=== PATIENT | female | born 1995 | race African-American/Black ===

== ENCOUNTER 2020-11-04 17:14 | Emergency (ER) | payer BC, MEDICAID ==
[~2020-11-04] VITALS: Ht 167.6 cm; Wt 68.0 kg
[2020-11-04] MEDS ORDERED: BACITRACIN ZINC OINT UDPKT TOP ONE (18:15)
[2020-11-04] MEDS ORDERED: TETRACAINE 0.5% OPHTH DROPS 4ML LEFTEYE ONE (18:15)
[2020-11-04] MEDS ORDERED: TETANUS, DIPHTHERIA, PERTUSSIS VAC/PF 0.5ML (>7YR OLD) IM ONE (18:15)
[2020-11-04] MEDS ORDERED: HYDROCODONE/ACETAMINOPHEN 5/325MG TABLET PO ONE (18:15)
[2020-11-04] MEDS ORDERED: FLUORESCEIN SODIUM 1MG/STRIP LEFTEYE ONE (18:15)
[2020-11-04 18:42] VITALS: BP 136/70
== END 2020-11-04 19:11 | disposition left against medical advice (07) ==
LOC: ER 17:14
DX: S00.83XA Contusion of other part of head, initial encounter (principal); H11.32 Conjunctival hemorrhage, left eye; M79.671 Pain in right foot; R06.02 Shortness of breath; Y04.0XXA Assault by unarmed brawl or fight, initial encounter; Y93.89 Activity, other specified; Y92.89 Other specified places as the place of occurrence of the external cause; Y99.8 Other external cause status
CPT/HCPCS: 81025; 90471; 90715; 99284

== ENCOUNTER 2021-07-23 01:27 | Inpatient (IN) | payer BC, MEDICAID ==
[~2021-07-23] VITALS: Ht 172.7 cm; Wt 86.2 kg
[2021-07-23] MEDS ORDERED: NALOXONE HCL 0.4 MG/ML 1ML VIAL IM PRN (02:45)
[2021-07-23] MEDS ORDERED: METHYLERGONOVINE MALEATE 0.2 MG/ML IM PRN (02:45)
[2021-07-23] MEDS ORDERED: BUTORPHANOL TARTRATE 2 MG/ML VIAL IV PRN (02:45)
[2021-07-23] MEDS ORDERED: CARBOPROST TROMETHAMINE 250 MCG/ML AMPUL IM PRN (02:45)
[2021-07-23] MEDS ORDERED: MISOPROSTOL 200MCG TABLET VG NR (03:00)
[2021-07-23] MEDS ORDERED: LIDOCAINE HCL 1% 20ML VIAL (Pyxis) INJ INFIL SCH (03:00)
[2021-07-23] MEDS ORDERED: DEXT 5%/LR + PITOCIN 20UNITS/L 1,000 ML IV SCH (03:00)
[2021-07-23] MEDS ORDERED: PENICILLIN G POTASSIUM 5 MMU in DEXT 5% WATER 100 ML IV NR (03:00)
[2021-07-23] MEDS ORDERED: PREN-182 PO (03:19)
[2021-07-23] MEDS: LACTATED RINGERS 1,000 ML IV SCH ×3 (03:21→16:43)
[2021-07-23 03:47] LABS: BASOPHILS % 0.3 % (0.0-2.0); EOSINOPHILS % 0.8 % (0.0-5.0); HEMATOCRIT. 35.5 % (36.0-48.0); HEMOGLOBIN. 11.7 g/dL (12.0-16.0); LYMPHOCYTES % 26.9 % (20.0-50.0); MEAN CORPUSCULAR HEMOGLOBIN 28.8 pg (28.0-32.0); MEAN CORPUSCULAR VOLUME 87.6 fL (81.0-99.0); MEAN PLATELET VOLUME 8.8 fl (7.4-10.4); MONOCYTES % 8.3 % (2.0-8.0); NEUTROPHILS % 63.7 % (40.0-76.0); PLATELET 279 x1000/uL (130-400); RED BLOOD CELL COUNT 4.06 mill/uL (4.2-5.4); RED CELL DISTRIBUTION WIDTH 13.3 % (11.6-14.6)
[2021-07-23 03:50] LABS: CLARITY URINE CLEAR (CLEAR); COLOR URINE YELLOW (YELLOW); KETONES URINE NEGATIVE (NEGATIVE); LEUKOCYTE ESTERASE URINE 1+ (NEGATIVE); NITRITE URINE NEGATIVE (NEGATIVE); OCCULT BLOOD URINE NEGATIVE (NEGATIVE); PROTEIN URINE NEGATIVE (NEGATIVE); SPECIFIC GRAVITY URINE 1.012 (1.005-1.030); UROBILINOGEN URINE 0.2 E.U./dL (0.2-1.0)
[2021-07-23 04:00] LABS: *AMPHETAMINES SCREEN URINE NEGATIVE (NEGATIVE); *BARBITURATES SCREEN URINE NEGATIVE (NEGATIVE); *BENZODIAZEPINES SCREEN URINE NEGATIVE (NEGATIVE)
[2021-07-23 04:02] LABS: *COCAINE SCREEN URINE NEGATIVE (NEGATIVE); CANNABINOID URINE SCREEN NEGATIVE (NEGATIVE); METHADONE URINE SCREEN NEGATIVE (NEGATIVE); OPIATES URINE SCREEN NEGATIVE (NEGATIVE); PHENCYCLIDINE URINE SCREEN NEGATIVE (NEGATIVE)
[2021-07-23 04:18] LABS: INR 0.9; PARTIAL THROMBOPLASTIN TIME 30.5 sec (23.4-31.0); PROTHROMBIN TIME 10.1 sec (9.6-11.0)
[2021-07-23 04:23] LABS: HEPATITIS B SURFACE ANTIGEN NEGATIVE
[2021-07-23] MEDS: PENICILLIN G POTASSIUM 2.5 MMU in DEXTROSE 5% WATER 50 ML IV SCH ×4 (08:01→20:25)
[2021-07-23] MEDS: MAGNESIUM 20 G PREMIX (L & D) 500 ML IV SCH ×2 (08:48→16:54)
[2021-07-23] MEDS: BETAMETHASONE ACET/BETAMET 30 MG/5 ML VIAL IM SCH (08:49)
[2021-07-23] MEDS ORDERED: AZITHROMYCIN 500MG in DEXTROSE 5% WATER 250ML IV SCH (10:00)
[2021-07-23] MEDS ORDERED: AZITHROMYCIN 500MG/250ML 250 ML IV SCH (10:00)
[2021-07-24] MEDS: PENICILLIN G POTASSIUM 2.5 MMU in DEXTROSE 5% WATER 50 ML IV SCH ×3 (00:04→08:27)
[2021-07-24] MEDS: LACTATED RINGERS 1,000 ML IV SCH (00:05)
[2021-07-24 03:15] VITALS: BP 120/57
[2021-07-24] MEDS: MAGNESIUM 20 G PREMIX (L & D) 500 ML IV SCH (03:15)
[2021-07-24] MEDS: BETAMETHASONE ACET/BETAMET 30 MG/5 ML VIAL IM SCH (08:28)
== END 2021-07-24 10:10 | disposition home or self-care (01) | DRG 566 ==
LOC: OBSVTOIN 01:27 → 8 EST LDRP 01:27 → 8 EST A/PP 18:17
PROVIDERS: ADMIT Obstetrics & Gynecology; ATTEND Obstetrics & Gynecology
DX: O60.03 Preterm labor without delivery, third trimester (principal); G61.0 Guillain-Barre syndrome; Z20.822 Contact with and (suspected) exposure to COVID-19; O99.353 Diseases of the nervous system complicating pregnancy, third trimester; Z3A.32 32 weeks gestation of pregnancy
CPT/HCPCS: 36415; 76805; 76818; 80305; 81003; 83735; 85025; 86592; 86703; 86762; 86850; 86900; 87340; 87426; G0378; J0456; J0702; J2540; J3475; J7060; J7120; A4315

== ENCOUNTER 2021-07-27 12:15 | Observation (INO) | payer MEDICAID ==
[~2021-07-27] VITALS: Ht 160 cm; Wt 86.2 kg
[~2021-07-27 12:15] MED LIST: PREN-182 PO
== END 2021-07-27 14:00 | disposition home or self-care (01) ==
LOC: 8 EST LDRP 12:15
PROVIDERS: ADMIT Obstetrics & Gynecology; ATTEND Obstetrics & Gynecology
DX: O99.891 Other specified diseases and conditions complicating pregnancy (principal); M54.59 Other low back pain; Z3A.33 33 weeks gestation of pregnancy
CPT/HCPCS: 59025; G0378; 99281

== ENCOUNTER 2021-08-23 04:32 | Inpatient (IN) | payer MEDICAID, OTHER ==
[~2021-08-23] VITALS: Ht 172.7 cm; Wt 88.5 kg
[2021-08-23] MEDS ORDERED: DEXT 5%/LR + PITOCIN 20UNITS/L 1,000 ML IV SCH ×2 (05:15→07:00)
[2021-08-23] MEDS ORDERED: LACTATED RINGERS 1,000 ML IV SCH (05:15)
[2021-08-23] MEDS ORDERED: METHYLERGONOVINE MALEATE 0.2 MG/ML IM PRN (05:15)
[2021-08-23] MEDS ORDERED: BUTORPHANOL TARTRATE 2 MG/ML VIAL IV PRN (05:15)
[2021-08-23] MEDS ORDERED: LIDOCAINE HCL 1% 20ML VIAL (Pyxis) INJ INFIL NR (05:15)
[2021-08-23] MEDS ORDERED: MISOPROSTOL 200MCG TABLET VG NR (05:30)
[2021-08-23] MEDS ORDERED: PENICILLIN G POTASSIUM 5 MMU in DEXT 5% WATER 100 ML IV SCH (05:30)
[2021-08-23 06:04] LABS: BASOPHILS % 0.2 % (0.0-2.0); EOSINOPHILS % 0.5 % (0.0-5.0); HEMATOCRIT. 38.9 % (36.0-48.0); HEMOGLOBIN. 12.5 g/dL (12.0-16.0); LYMPHOCYTES % 27.1 % (20.0-50.0); MEAN CORPUSCULAR HEMOGLOBIN 27.9 pg (28.0-32.0); MEAN CORPUSCULAR VOLUME 86.5 fL (81.0-99.0); MEAN PLATELET VOLUME 9.2 fl (7.4-10.4); MONOCYTES % 5.8 % (2.0-8.0); NEUTROPHILS % 66.4 % (40.0-76.0); PLATELET 304 x1000/uL (130-400); RED BLOOD CELL COUNT 4.49 mill/uL (4.2-5.4); RED CELL DISTRIBUTION WIDTH 14.5 % (11.6-14.6)
[2021-08-23 06:26] LABS: INR 0.9; PARTIAL THROMBOPLASTIN TIME 29.3 sec (23.4-31.0); PROTHROMBIN TIME 9.8 sec (9.6-11.0)
[2021-08-23 06:38] LABS: CLARITY URINE CLOUDY (CLEAR); COLOR URINE YELLOW (YELLOW); KETONES URINE NEGATIVE (NEGATIVE); LEUKOCYTE ESTERASE URINE 2+ (NEGATIVE); NITRITE URINE NEGATIVE (NEGATIVE); OCCULT BLOOD URINE 3+ (NEGATIVE); PROTEIN URINE 2+ (NEGATIVE); SPECIFIC GRAVITY URINE 1.011 (1.005-1.030); UROBILINOGEN URINE 0.2 E.U./dL (0.2-1.0)
[2021-08-23 06:45] LABS: HEPATITIS B SURFACE ANTIGEN NEGATIVE
[2021-08-23] MEDS ORDERED: RHO(D) IMMUNE GLOBULIN 300 MCG/SYR IM PRN (07:00)
[2021-08-23] MEDS ORDERED: BENZOCAINE/LANOLIN/ALOE VERA SPRAY TOP PRN (07:00)
[2021-08-23] MEDS ORDERED: OXYCODONE HCL/ACETAMINOPHEN 5/325MG TABLET PO PRN (07:00)
[2021-08-23] MEDS ORDERED: IBUPROFEN 400MG TABLET PO PRN (07:00)
[2021-08-23 07:16] LABS: *AMPHETAMINES SCREEN URINE NEGATIVE (NEGATIVE); *BARBITURATES SCREEN URINE NEGATIVE (NEGATIVE); *BENZODIAZEPINES SCREEN URINE NEGATIVE (NEGATIVE); *COCAINE SCREEN URINE NEGATIVE (NEGATIVE)
[2021-08-23 07:17] LABS: CANNABINOID URINE SCREEN NEGATIVE (NEGATIVE); METHADONE URINE SCREEN NEGATIVE (NEGATIVE); OPIATES URINE SCREEN NEGATIVE (NEGATIVE); PHENCYCLIDINE URINE SCREEN NEGATIVE (NEGATIVE)
[2021-08-23 08:00] VITALS: BP 111/74
[2021-08-23] MEDS: PRENATAL VIT/FE FUMARATE/FA TABLET PO SCH (08:46)
[2021-08-23] MEDS ORDERED: PENICILLIN G POTASSIUM 2.5 MMU in DEXTROSE 5% WATER 50 ML IV SCH (10:00)
[2021-08-23] MEDS: IBUPROFEN 800MG TABLET PO PRN ×2 (10:24→21:19)
[2021-08-23 16:30] VITALS: BP 109/68
[2021-08-23] MEDS ORDERED: NALOXONE HCL 0.4MG/ML VIAL IV PRN (18:00)
[2021-08-23] MEDS ORDERED: TETANUS, DIPHTHERIA, PERTUSSIS VAC/PF 0.5ML (>10YR OLD) IM ONE (19:00)
[2021-08-23 19:30] VITALS: BP 123/73
[2021-08-23] MEDS: DOCUSATE SODIUM 100MG CAPSULE PO SCH (21:12)
[2021-08-24 04:00] VITALS: BP 107/49
[2021-08-24 07:30] VITALS: BP 114/61
[2021-08-24 07:40] LABS: BASOPHILS % 0.4 % (0.0-2.0); EOSINOPHILS % 2.3 % (0.0-5.0); HEMATOCRIT. 33.1 % (36.0-48.0); HEMOGLOBIN. 10.8 g/dL (12.0-16.0); LYMPHOCYTES % 28.4 % (20.0-50.0); MEAN CORPUSCULAR HEMOGLOBIN 28.4 pg (28.0-32.0); MEAN CORPUSCULAR VOLUME 86.7 fL (81.0-99.0); MEAN PLATELET VOLUME 8.5 fl (7.4-10.4); MONOCYTES % 7.2 % (2.0-8.0); NEUTROPHILS % 61.7 % (40.0-76.0); PLATELET 297 x1000/uL (130-400); RED BLOOD CELL COUNT 3.81 mill/uL (4.2-5.4); RED CELL DISTRIBUTION WIDTH 14.6 % (11.6-14.6)
[2021-08-24] MEDS: PRENATAL VIT/FE FUMARATE/FA TABLET PO SCH (08:03)
[2021-08-24] MEDS: FERROUS SULFATE 325MG TABLET PO SCH ×2 (08:03→18:03)
[2021-08-24] MEDS: IBUPROFEN 800MG TABLET PO PRN ×2 (15:43→21:55)
[2021-08-24 15:44] VITALS: BP 123/76
[2021-08-24 20:00] VITALS: BP 122/70
[2021-08-24] MEDS: DOCUSATE SODIUM 100MG CAPSULE PO SCH (21:57)
[2021-08-25] MEDS: IBUPROFEN 800MG TABLET PO PRN ×2 (03:55→09:58)
[2021-08-25 04:00] VITALS: BP 106/57
[2021-08-25 07:41] VITALS: BP 111/58
[2021-08-25] MEDS: FERROUS SULFATE 325MG TABLET PO SCH (08:59)
[2021-08-25] MEDS: PRENATAL VIT/FE FUMARATE/FA TABLET PO SCH (08:59)
== END 2021-08-25 11:40 | disposition home or self-care (01) | DRG 560 ==
LOC: 8 EST LDRP 04:32 → OBSVTOIN 04:32 → 8 EST A/PP 08:50 → 8EST 17:40
PROVIDERS: ADMIT Obstetrics & Gynecology; ATTEND Obstetrics & Gynecology
PROC: 10E0XZZ Delivery of Products of Conception, External Approach (ICD-10-PCS; principal; 2021-08-23)
PROC: 0KQM0ZZ Repair Perineum Muscle, Open Approach (ICD-10-PCS; 2021-08-23)
DX: O69.2XX0 Labor and delivery complicated by other cord entanglement, with compression, not applicable or unspecified (principal); Z37.0 Single live birth; O70.1 Second degree perineal laceration during delivery; Z3A.37 37 weeks gestation of pregnancy; Z20.822 Contact with and (suspected) exposure to COVID-19
CPT/HCPCS: 36415; 80305; 81003; 85025; 86592; 86703; 86762; 86850; 86900; 87340; 87426; 90715; J0595; J2540; J2590; J3490; J7060; J7120

== ENCOUNTER 2025-05-22 09:23 | Emergency (ER) | payer BC, MEDICAID ==
[~2025-05-22] VITALS: Ht 170.2 cm; Wt 69.0 kg
[2025-05-22 09:33] VITALS: O2SAT 100
[2025-05-22 09:37] VITALS: BP 111/64; PULSE 89; RESP 16; TEMP 36.6; O2SAT 100
[2025-05-22] MEDS: LIDOCAINE HCL 1% 20ML VIAL INFIL ONE (11:15)
[2025-05-22] MEDS: ACETAMINOPHEN 500MG TABLET PO ONE (11:15)
== END 2025-05-22 14:17 | disposition home or self-care (01) ==
LOC: ER 09:34
DX: Z48.03 Encounter for change or removal of drains (principal); F41.9 Anxiety disorder, unspecified
CPT/HCPCS: 99282; J2003; Z7610